=== PATIENT | male | born 2000 | race Caucasian/White ===

== ENCOUNTER 2024-05-27 11:30 | Emergency (ER) | payer OTHER, SELFPAY ==
--- NOTE | ~2024-05-27 | XR_ITS ---
EXAMINATION: XR HAND, LEFT CLINICAL INFORMATION: Pain around, right COMPARISON: None available. TECHNIQUE: PA, lateral, and oblique views of the left hand. FINDINGS: Bone and joints normal. Metallic round foreign body overlying the volar aspect of the hand at the level of the second metacarpal. There is streaky low density in the thenar region of the thumb may reflect a small amount of gas perhaps related to overlying soft tissue injury. XR/XR hand LT min 3V IMPRESSION: 1. No fracture or dislocation. 2. Metallic foreign body in the hand. 3. Question gas in the thenar region of the thumb perhaps related to overlying soft tissue injury.
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
[2024-05-27 11:42] VITALS: BP 143/83; PULSE 98; RESP 18; TEMP 36.9; O2SAT 98; BMI 20.3
[2024-05-27 12:54] VITALS: BP 122/77; PULSE 91; RESP 16; TEMP 36.3; O2SAT 99
[2024-05-27] MEDS: Acetaminophen 325 MG TABLET 975 MG PO (14:05)
[2024-05-27] MEDS: Rabies Immune Globulin/PF 900 UNIT/3 ML VIAL 1474 UNIT IM (14:06)
[2024-05-27] MEDS: Bacitracin Oint 0.9 GM PACKET 1 APPL TOPICAL (14:06)
[2024-05-27] MEDS: Rabies Vaccine, Human Diploid (Imovax) 1 ML VIAL IM (14:07)
[2024-05-27] MEDS: Diphth,Pertus(ACell),Tet Adult 0.5 ML SYRINGE IM (14:10)
--- NOTE | 2024-05-27 14:21 | PC.NURSE ---
provider at bedside infiltrating multiple bit wounds to hand w rabies immune globulin, pt tolerated poorly, increased pain with nerve type pain radiating up arm. remainder of immunoglobulin given left and right ventrogluteal area. rabies vaccine administered left deltoid, tdap administered right deltoid
[2024-05-27 14:30] VITALS: BP 122/74; PULSE 85; RESP 16; TEMP 36.7; O2SAT 99
[2024-05-27] MEDS: oxyCODONE HCl Immed Release 5 MG TABLET PO (14:46)
[2024-05-27 15:02] VITALS: BP 122/74; PULSE 85; RESP 16; TEMP 36.7; O2SAT 99
--- NOTE | 2024-05-27 15:04 | PC.NURSE ---
Bite report faxed to [place] [employer] Attn: [employer]
== END 2024-05-27 15:06 | disposition home or self-care (01) ==
PROVIDERS: Emergency Provider Emergency Medicine Emergency Medical Services
DX: S61.432A Puncture wound without foreign body of left hand, initial encounter (principal); W55.81XA Bitten by other mammals, initial encounter; Y93.K1 Activity, walking an animal; Y92.821 Forest as the place of occurrence of the external cause; Y99.9 Unspecified external cause status; Z20.3 Contact with and (suspected) exposure to rabies; Z23 Encounter for immunization
CPT/HCPCS: 73130; 90375; 90471; 90675; 90715; 96372; 99284